=== PATIENT | male | born 1990 | race American Indian/Alaskan Native ===

== ENCOUNTER 2017-05-25 22:24 | Emergency (ER) | payer MEDICAID ==
[2017-05-25 23:23] VITALS: BP 126/81
== END 2017-05-26 08:52 ==
LOC: ED 22:24
DX: N48.89 Other specified disorders of penis (principal); Z53.21 Procedure and treatment not carried out due to patient leaving prior to being seen by health care provider

== ENCOUNTER 2021-07-15 10:00 | Emergency (ER) | payer SELFPAY ==
[2021-07-15 10:10] VITALS: BP 125/80
[2021-07-15] MEDS ORDERED: IBUPROFEN 800 MG TAB PO ONE (11:18)
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
--- NOTE | 2021-07-15 11:46 | XRay Report ---
LUMBAR SPINE 3 VIEWS INDICATION / CLINICAL INFORMATION: back pain. COMPARISON: None available. FINDINGS: VERTEBRAE: No acute fracture. No significant malalignment. DISC SPACES / FACET JOINTS:No significant abnormality. PARASPINAL SOFT TISSUES:No significant abnormality. ADDITIONAL FINDINGS: None. Signer Name: Cristobal Barboza DO Signed: 07/15/2021 11:42 AM Workstation Name: [id number]
== END 2021-07-15 12:36 | disposition home or self-care (01) ==
LOC: ED 10:00
DX: M54.9 Dorsalgia, unspecified (principal); V89.2XXA Person injured in unspecified motor-vehicle accident, traffic, initial encounter; Y93.89 Activity, other specified; Y92.89 Other specified places as the place of occurrence of the external cause; Y99.8 Other external cause status
CPT/HCPCS: 72100; 99283